=== PATIENT | male | born 1990 | race Caucasian/White ===

== ENCOUNTER → 2019-04-23 19:03 | Outpatient (CLI) | payer OTHER, MEDICAID, SELFPAY ==
--- NOTE | 2019-04-23 19:09 | DI.MRI.S_ITS ---
PROCEDURE: MR SHOULDER LT WO CON INDICATIONS: ANTERIOR DISLOCATION OF LEFT HUMERUS SUBSEQUENT E TECHNIQUE: Noncontrast oblique coronal T2 fast spin echo with fat saturation, oblique sagittal T1 spin echo and T2 fast spin echo with fat saturation, axial T1 spin echo and T2 fast spin echo with fat saturation through the shoulder. COMPARISON: [facility], CR, XR SHOULDER 2+ VIEWS LEFT, 04/11/2019, 10:32. FINDINGS: Image quality: Diagnostic. Rotator cuff: No full-thickness or high-grade partial-thickness tear of the rotator cuff is identified. There is mild bursal surface fraying and tendinopathy involving the distal aspect of the supraspinatus and infraspinatus tendons. The subscapularis and teres minor tendons are intact. There is no significant atrophy of the rotator cuff muscles. Bones and bursae: No acute fracture, dislocation, or suspicious osseous lesion is identified involving the osseous structures of the shoulder. Flattening along the posterosuperior margin of the humeral head is present with areas of mild focal marrow edema, suggesting a Hill-Sachs deformity. Irregularity along the anteroinferior margin of the bony glenoid is identified without a discrete fracture evident. No associated marrow edema is evident. There is no significant glenohumeral joint effusion. No significant degenerative changes of the glenohumeral or acromial clavicular joints are present. There is a small amount fluid contained within the subacromial subdeltoid bursa. Capsule and soft tissues: Evaluation of the labrum and the glenohumeral ligaments is difficult without intra-articular contrast. However, moderate-sized anterior labral tear is identified extending from 12 o'clock position to the 6 o'clock position. No large para labral cysts or detached labral fragments are appreciated. The long head of the biceps tendon is normally positioned within the bicipital groove and appears to be intact. No acute injuries involving the glenohumeral ligaments are suspected. IMPRESSION: 1. 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 The possibility of a chronic only Bankart is difficult to exclude. 2. Subacute-appearing Hill-Sachs deformity of the humeral head. 3. Low-grade partial-thickness tearing and tendinopathy of the supraspinatus and infraspinatus tendons. Dictated by: Rajinder Toscano M.D. on 04/24/2019 at 9:02 Approved by: Rajinder Toscano M.D. on 04/24/2019 at 9:11
== END ==
PROVIDERS: Family Provider Orthopaedic Surgery; PCP Orthopaedic Surgery; Visit Provider Physician Assistant Surgical
DX: S43.015D Anterior dislocation of left humerus, subsequent encounter (principal); M75.112 Incomplete rotator cuff tear or rupture of left shoulder, not specified as traumatic
CPT/HCPCS: 73221

== ENCOUNTER → 2021-08-12 10:00 | Outpatient (CLI) | payer OTHER, MEDICAID, SELFPAY | PROVIDERS: Family Provider Orthopaedic Surgery; PCP Physician Assistant; Visit Provider Physician Assistant | DX: G89.29 Other chronic pain (principal); R10.9 Unspecified abdominal pain | CPT/HCPCS: 87045; 87177; 87899 ==

== ENCOUNTER → 2021-08-17 12:10 | Outpatient (CLI) | payer OTHER, MEDICAID, SELFPAY ==
[2021-08-17 19:31] LABS: Add Manual Diff / Slide Review NO; Basophils Absolute Auto 0 /uL (0-100); Basophils Percent Auto 0.9 % (0-2); Eosinophils Absolute Auto 0 /uL (0-450); Eosinophils Percent Auto 0.7 % (2-4); Lymphocytes Absolute Auto 1100 /uL (1100-4500); Lymphocytes Percent Auto 26.3 % (25-40); Mean Corpuscular HGB Conc 33.4 % (30-36); Mean Corpuscular Hemoglobin 28.4 PG (26-34); Mean Corpuscular Volume 84.9 fL (80-100); Monocytes Absolute Auto 400 /uL (0-900); Monocytes Percent Auto 9.2 % (3-14); Neutrophils Absolute Auto 2500 /uL (1500-7000); Neutrophils Percent Auto 62.9 % (50-75); Platelet Count 163 X10^3/uL (150-400); Red Blood Cell Count 4.59 X10^6/uL (4.5-5.9); Red Cell Distribution Width 13.3 % (11.6-14.8)
[2021-08-17 19:42] LABS: Alanine Aminotransferase 34 IU/L (<50); Albumin 4.5 g/dL (3.5-5.0); Albumin Globulin Ratio 1.8 (1.0-2.8); Alkaline Phosphatase 45 U/L (38-126); Aspartate Aminotransferase 64 IU/L (17-59); BUN Creatinine Ratio 21.6 (6-22); Bilirubin Total 0.4 mg/dL (0.2-1.3); Blood Urea Nitrogen 19 mg/dL (9-20); Calcium 9.7 mg/dL (8.4-10.2); Carbon Dioxide 29 mmol/L (22-32); Chloride 104 mmol/L (98-107); Estimated Glomerular Filt Rate > 60.0 mL/min (>60); Globulin 2.5 g/dL (1.7-4.1); Glucose 93 mg/dL (70-100); HEMOLYSIS < 15 (0-50); Potassium 4.2 mmol/L (3.4-5.1); Sodium 140 mmol/L (137-145)
== END ==
PROVIDERS: Family Provider Orthopaedic Surgery; PCP Physician Assistant; Visit Provider Physician Assistant
DX: R10.9 Unspecified abdominal pain (principal); G89.29 Other chronic pain; R19.00 Intra-abdominal and pelvic swelling, mass and lump, unspecified site
CPT/HCPCS: 80053; 83013; 85025

== ENCOUNTER → 2021-08-20 12:40 | Outpatient (CLI) | payer OTHER, MEDICAID, SELFPAY ==
--- NOTE | 2021-08-20 13:00 | DI.US.S_ITS ---
PROCEDURE: US ABDOMEN COMPLETE INDICATIONS: abdominal mass TECHNIQUE: Real-time scanning was performed of the abdominal and retroperitoneal organs, with image documentation. COMPARISON: None. FINDINGS: Liver: Liver is normal in size and homogeneous in echotexture. Gallbladder: Normally distended with no sludge, gallstone, wall thickening, or pericholecystic fluid. Biliary ducts: Intrahepatic bile ducts are non-dilated. Extrahepatic bile duct caliber measures 6 mm. Normal is 6-7 mm or less in diameter, or 10 mm or less post-cholecystectomy. Pancreas: Visualized portions of the pancreas are sonographically normal. Spleen: Spleen is normal in size and homogeneous in echotexture. Kidneys: Kidneys are normal in size and echotexture. Right kidney measures 11 cm long; left kidney measures 12 cm long. No hydronephrosis or nephrolithiasis. No solid masses. Aorta: Visualized aorta is normal in caliber at less than 3 cm. Iliacs: Proximal common iliac arteries are normal in caliber at less than 2.5 cm. IVC: Intrahepatic inferior vena cava is patent. Miscellaneous: No free abdominal fluid. IMPRESSION: Normal study. Dictated by: Zeus Chandra M.D. on 08/20/2021 at 13:59 Approved by: Zeus Chandra M.D. on 08/20/2021 at 13:59
== END ==
PROVIDERS: Family Provider Orthopaedic Surgery; PCP Physician Assistant; Referring Provider Physician Assistant; Visit Provider Physician Assistant
DX: R19.00 Intra-abdominal and pelvic swelling, mass and lump, unspecified site (principal); R10.9 Unspecified abdominal pain; G89.29 Other chronic pain
CPT/HCPCS: 76700

== ENCOUNTER → 2021-09-25 09:00 | Outpatient (CLI) | payer OTHER, MEDICAID, SELFPAY ==
--- NOTE | 2021-09-25 09:01 | DI.CT.S_ITS ---
PROCEDURE: CT ABDOMEN PELVIS W CON INDICATIONS: RUQ abdominal mass evaluation for liver cyst TECHNIQUE: After the administration of oral and IV contrast, axial sections were acquired from the lung bases to the pubic symphysis. Coronal and sagittal reformats were performed. For radiation dose reduction, the following was used: automated exposure control, adjustment of mA and/or kV according to patient size. COMPARISON: [facility], , US ABDOMEN COMPLETE, 08/20/2021, 13:03. FINDINGS: Image quality: Excellent. Lung bases: Unremarkable. Heart: No significant findings. ABDOMEN: Liver: In this patient with this given history, scrutiny is given to the liver. The liver demonstrates a normal appearance, with normal size. No masses are seen. No liver cysts are seen. Gallbladder: Unremarkable. Biliary ducts: Unremarkable. Pancreas: Unremarkable. Spleen: Unremarkable. Adrenal Glands: Unremarkable. Kidneys and Ureters: The right kidney is ptotic. The right kidney demonstrates normal size. The left kidney demonstrates a normal appearance. No hydronephrosis is seen on either side. Stomach and Bowel: Stomach, small bowel loops, and colon are unremarkable. There is a moderate amount of stool seen, including within the hepatic flexure of the colon. A normal appendix is incidentally noted. Peritoneum: No abnormal intraperitoneal fluid. No free air. Ventral Wall: No hernia. Abdominal Nodes: No retroperitoneal or mesenteric adenopathy by size criteria. Vessels: Aorta and inferior vena cava are normal in size. PELVIS: Pelvic Organs: Unremarkable. Bladder: Unremarkable. Pelvic Nodes: No enlarged lymph nodes. Miscellaneous: No inguinal hernias are seen. Bones: Unremarkable. IMPRESSION: Normal appearing liver, without cysts. Ptotic right kidney. There is a moderate amount of stool seen within the colon. Please correlate with an underlying history of constipation. Incidental note is made of: Normal appendix Dictated by: Kirill Hobson M.D. on 09/25/2021 at 9:37 Approved by: Kirill Hobson M.D. on 09/25/2021 at 9:42
== END ==
PROVIDERS: Family Provider Orthopaedic Surgery; PCP Physician Assistant; Referring Provider Physician Assistant; Visit Provider Physician Assistant
DX: N28.83 Nephroptosis (principal); R19.00 Intra-abdominal and pelvic swelling, mass and lump, unspecified site; A07.8 Other specified protozoal intestinal diseases; D64.9 Anemia, unspecified; R74.01 Elevation of levels of liver transaminase levels; R10.9 Unspecified abdominal pain; G89.29 Other chronic pain
CPT/HCPCS: 74177

== ENCOUNTER → 2021-10-02 08:02 | Outpatient (CLI) | payer OTHER, MEDICAID, SELFPAY ==
[2021-10-05 06:51] LABS: Fecal Immunochemical Test Negative (Negative)
== END ==
PROVIDERS: Family Provider Orthopaedic Surgery; PCP Physician Assistant; Visit Provider Physician Assistant
DX: R10.9 Unspecified abdominal pain (principal); G89.29 Other chronic pain; D64.9 Anemia, unspecified
CPT/HCPCS: 82274

== ENCOUNTER → 2021-12-18 13:41 | Outpatient (CLI) | payer OTHER, MEDICAID, SELFPAY ==
[2021-12-18 18:28] LABS: Add Manual Diff / Slide Review NO; Basophils Absolute Auto 0 /uL (0-100); Basophils Percent Auto 0.5 % (0-2); Eosinophils Absolute Auto 0 /uL (0-450); Eosinophils Percent Auto 0.3 % (2-4); Hematocrit 37.9 % (41-53); Hemoglobin 12.9 g/dL (13.5-17.5); Lymphocytes Absolute Auto 1200 /uL (1100-4500); Mean Corpuscular HGB Conc 34.1 % (30-36); Mean Corpuscular Hemoglobin 28.3 PG (26-34); Mean Corpuscular Volume 83.1 fL (80-100); Monocytes Absolute Auto 300 /uL (0-900); Monocytes Percent Auto 8.8 % (3-14); Neutrophils Absolute Auto 2500 /uL (1500-7000); Neutrophils Percent Auto 61.4 % (50-75); Platelet Count 151 X10^3/uL (150-400); Red Blood Cell Count 4.57 X10^6/uL (4.5-5.9); Red Cell Distribution Width 13.9 % (11.6-14.8)
[2021-12-18 18:34] LABS: HEMOLYSIS < 15 (0-50); Iron 77 ug/dL (49-181)
[2021-12-18 18:36] LABS: Alanine Aminotransferase 16 IU/L (<50); Albumin 4.2 g/dL (3.5-5.0); Albumin Globulin Ratio 1.6 (1.0-2.8); Alkaline Phosphatase 54 U/L (38-126); Aspartate Aminotransferase 79 IU/L (17-59); BUN Creatinine Ratio 20.2 (6-22); Bilirubin Total 0.5 mg/dL (0.2-1.3); Blood Urea Nitrogen 17 mg/dL (9-20); Calcium 8.8 mg/dL (8.4-10.2); Carbon Dioxide 27 mmol/L (22-32); Chloride 107 mmol/L (98-107); Estimated Glomerular Filt Rate > 60 mL/min (>60); Globulin 2.7 g/dL (1.7-4.1); Glucose 92 mg/dL (70-100); HEMOLYSIS 20 (0-50); Potassium 4.1 mmol/L (3.4-5.1); Sodium 140 mmol/L (137-145); Total Protein 6.9 g/dL (6.3-8.2)
[2021-12-18 18:45] LABS: Percent Iron Saturation 27 % (20-50); Total Iron Binding Capacity 282 ug/dL (261-462); Transferrin 210 mg/dL (206-381)
[2021-12-18 19:11] LABS: Ferritin 49 ng/mL (18-464)
== END ==
PROVIDERS: Family Provider Orthopaedic Surgery; PCP Physician Assistant; Visit Provider Physician Assistant
DX: D64.9 Anemia, unspecified (principal); R74.01 Elevation of levels of liver transaminase levels
CPT/HCPCS: 80053; 82728; 83540; 83550; 85025